=== PATIENT | female | born 1995 | race Caucasian/White ===

== ENCOUNTER 2018-08-10 20:51 | Emergency (ER) | payer OTHER ==
[2018-08-10 20:57] VITALS: BP 127/80; PULSE 100; TEMP 98.2; BMI 21.4
[2018-08-10] MEDS ORDERED: IBUPROFEN 100 MG/5 ML UNIT DOSE CUPS PO ONE (21:05)
--- NOTE | 2018-08-10 21:06 | PDOC ---
History of Present Illness - General History Source: Patient Exam Limitations: No Limitations - History of Present Illness Initial Comments: 08/10/18 21:25 The patient is a 22 year old female with no significant past medical history who presents to the ED with a sore throat since this morning. The patient notes she had a recent cold that self resolved. The patient notes these are similar symptoms to her previous Strep throat. The patient reports having nasal congestion, ear pain on both ears, and difficulty swallowing food. The patient took Tylenol with mild relief. The patient notes she saw the nurse at school without any thorough evaluation. The patient denies any sick contacts or travel. The patient denies having the flu shot. Denies fever, chills, chest pain, SOB, palpitation, dizziness, N, V, D, abdominal pain, bladder and bowel problems, leg swelling, no travel history. Allergies: Erythromycin base Past Medical History: None reported Social history: Attends [employer], No smoking. No alcohol. No illicit drugs. Surgical history: None reported ROS Constitutional: no fevers or chills. No sweats or weakness. HEENT: (+) nasal congestion.(+) ear pain. no headache or dizziness. No visual/ hearing disturbances. CVS: no cp no palpitations. Resp: no sob. No cough. Gastrointestinal: no abdominal pain, nausea or vomiting. MUSCULOSKELETAL:(+) mild myalgia. No joint pain and swelling. No neck or back pain. No neck stiffness. SKIN: no redness or skin changes, no discharge, no rash. No wounds. Hematologic: no easy bruising/bleeding. NEUROLOGIC: No headache, dizziness, LOC or altered mental status. No weakness, numbness or tingling. Allergic/Immunologic: no environmental allergies All other systems reviewed and negative, or as documented in HPI. PE: General: Well appearing, awake and alert, NAD. HEENT: NCAT, PERRL, EOMI, clear conjunctiva, anicteric, moist mucous membranes , clear oropharynx, no oral lesions.. (+) right tonsil inflammation, erythema, with scant exudates. No kissing tonsils. Normal phonation, uvula midline. T.M bilaterally clear, no erythema or tenderness to pinna manipulation. Neck: neck supple, FROM; no meningismus. Resp: CTAB, normal and even respirations, no respiratory distress CVS: RRR, no murmurs, 2+ peripheral pulses throughout, no peripheral edema Abdomen: soft, NTND, no peritoneal signs. Back: nontender, normal inspection and ROM MSK: no edema, LEE x4, ROM intact. No clubbing or cyanosis. normal bulk and tone. Neuro: alert Skin: warm and well perfused, cap refill <2 sec, normal color. No rash. Lymph: no lymphadenopathy <Wai Manning - Last Filed: 08/10/18 21:25> - General History Source: Patient Exam Limitations: No Limitations <Pema Daily - Last Filed: 08/10/18 21:28> - General Chief Complaint: Pain, Acute Stated Complaint: STREPT THROAT Time Seen by Provider: 08/10/18 20:52 Past History <Wai Manning - Last Filed: 08/10/18 21:25> - Past Medical History COPD: No Other medical history: DENIES - Suicide/Smoking/Psychosocial Hx Smoking History: Never smoked Have you smoked in the past 12 months: No Information on smoking cessation initiated: Yes Hx Alcohol Use: Yes Drug/Substance Use Hx: No <Pema Daily - Last Filed: 08/10/18 21:28> - Past Medical History Allergies/Adverse Reactions: Allergies Allergy/AdvReac Type Severity Reaction Status Date / Time erythromycin base Allergy Verified 08/10/18 20:53 Home Medications: Ambulatory Orders NK [No Known Home Medication] 08/10/18 *Physical Exam - Vital Signs Last Vital Signs Temp Pulse Resp BP Pulse Ox 98.2 F 100 H 16 127/80 99 08/10/18 20:54 08/10/18 20:54 08/10/18 20:54 08/10/18 20:54 08/10/18 20:54 <Wai Manning - Last Filed: 08/10/18 21:25> - Vital Signs Last Vital Signs Temp Pulse Resp BP Pulse Ox 98.2 F 100 H 16 127/80 99 08/10/18 20:54 08/10/18 20:54 08/10/18 20:54 08/10/18 20:54 08/10/18 20:54 <Pema Daily - Last Filed: 08/10/18 21:28> Moderate Sedation - Procedure Monitoring Vital Signs: Procedure Monitoring Vital Signs Temperature 98.2 F 08/10/18 20:54 Pulse Rate 100 H 08/10/18 20:54 Respiratory Rate 16 08/10/18 20:54 Blood Pressure 127/80 08/10/18 20:54 O2 Sat by Pulse Oximetry (%) 99 08/10/18 20:54 <Wai Manning - Last Filed: 08/10/18 21:25> - Procedure Monitoring Vital Signs: Procedure Monitoring Vital Signs Temperature 98.2 F 08/10/18 20:54 Pulse Rate 100 H 08/10/18 20:54 Respiratory Rate 16 08/10/18 20:54 Blood Pressure 127/80 08/10/18 20:54 O2 Sat by Pulse Oximetry (%) 99 08/10/18 20:54 <Pema Daily - Last Filed: 08/10/18 21:28> ED Treatment Course - Medications Given in the ED: ED Medications Discontinued Medications Generic Name Dose Route Start Last Admin Trade Name Hollie PRN Reason Stop Dose Admin Dexamethasone 10 mg 08/10/18 21:12 08/10/18 21:20 Decadron Liquid - PO 08/10/18 21:13 10 mg ONCE ONE Administration Ibuprofen 400 mg 08/10/18 21:05 08/10/18 21:13 Motrin Oral Suspension - PO 08/10/18 21:06 400 mg ONCE ONE Administration <Wai Manning - Last Filed: 08/10/18 21:25> Medical Decision Making - Medical Decision Making 08/10/18 21:27 I, Pema Daily MD, attest that this document has been prepared under my direction and personally reviewed by me in its entirety. I further attest, that it accurately reflects all work, treatment, procedures and medical decision -making performed by me. See HPI for details Vital signs reviewed, wnl. no fever, nontoxic appearing DDx. strep throat, pharyngitis, tonsillitis, doubt RPA or BEAD STRINGER on exam. no meningeal signs. no e/o dehydration. no flu like sx. ED course: strep test neg, f/u cultures given Ibuprofen and dexamethasone, liss PO intake, nontoxic. reassurance given, discharge instructions as below. Dispo: Pt informed of my clinical impression, treatment recommendations and disposition plan. All questions answered to patient's satisfaction and expressed understanding and comfort with this. Reasons for returning to the ED sooner discussed with the patient otherwise, follow up with primary care physician. At the time of discharge, the patient is alert, clinically improved, tolerating po and verbalizes understanding of instructions. Patient does not suffer from an acute life-threatening medical condition at this time she is safe for outpatient follow-up. <AbimbolaMarielPemashanae Hull - Last Filed: 08/10/18 21:28> *DC/Admit/Observation/Transfer - Attestations Scribe Attestion: 08/10/18 21:25 Documentation prepared by Wai Manning, acting as front office medical assistant for Pema Daily MD, MD <Wai Manning - Last Filed: 08/10/18 21:25> - Discharge Dispostion Decision to Admit order: No <Pema Daily - Last Filed: 08/10/18 21:28> Diagnosis at time of Disposition: Acute tonsillitis Qualifiers: Pharyngitis/tonsillitis etiology: other specified organisms Qualified Code(s): J03.80 - Acute tonsillitis due to other specified organisms Acute pharyngitis Qualifiers: Pharyngitis/tonsillitis etiology: other specified organisms Qualified Code(s): J02.8 - Acute pharyngitis due to other specified organisms - Discharge Dispostion Disposition: HOME Condition at time of disposition: Stable - Referrals Referrals: [facility] [place] [facility] [place] [Provider Group] [facility] [Provider Group] - Patient Instructions Printed Discharge Instructions: DI for Pharyngitis/Tonsillopharyngitis -- Adult Additional Instructions: Your strep test preliminarily as negative, follow-up on throat cultures. Saltwater gargles, warm limited and ivett tea to soothe the back of the throat. This is most likely a viral cause Stay well-hydrated, may take Motrin/Tylenol as needed for pain every 6 hours. Adequately, wear a mask when you cough. Supportive care encouraged and adequate rest. You were given ibuprofen and one-time dose of oral steroids for anti- inflammatory should and for discomfort. avoid contact sports in the meantime. See your primary doctor, return if worsening symptoms including respiratory distress, high fevers, inability to tolerate your secretions or oral intake, worsening pain, neck stiffness, neurologic changes or dehydration.
[2018-08-10] MEDS ORDERED: IBUPROFEN 100 MG/5 ML UNIT DOSE CUPS ONE (21:12)
[2018-08-10] MEDS ORDERED: DEXAMETHASONE LIQUID 0.5 MG/5 ML 240 ML BULK BOTTLE PO ONE (21:12)
[2018-08-10] MEDS ORDERED: DEXAMETHASONE SOD PHOSPHATE 10 MG/1 ML VIAL ONE (21:14)
== END 2018-08-10 21:30 | disposition home or self-care (01) ==
LOC: FER 20:51
DX: J02.8 Acute pharyngitis due to other specified organisms (principal); J03.80 Acute tonsillitis due to other specified organisms
CPT/HCPCS: 87070; 87880; 99281-25

== ENCOUNTER 2018-09-16 13:17 | Emergency (ER) | payer BC, OTHER ==
[2018-09-16 13:21] VITALS: BMI 22.1
--- NOTE | 2018-09-16 13:38 | PDOC ---
History of Present Illness - General History Source: Patient Exam Limitations: No Limitations - History of Present Illness Initial Comments: 09/16/18 14:01 The patient is a 22 year old female, with no significant past medical history, who presents to the emergency department with complaint of painful mouth sores. She states she developed chills, body aches, and sores inside her mouth on Thursday. She states she continued to have chills and sores for the remainder of the weekend which she states prompted a visit to urgent care on Thursday. She states she told urgent care about the sores and also that she was concerned about a possible infected wisdom tooth and the urgent care physician prescribed amoxicillin and acyclovir which she reportedly started Thursday. She states she developed nausea and vomiting shortly after taking the medication, but denies nausea or vomiting since. She states she has been unable to eat solid foods secondary to pain in her mouth. She states she has been drinking Ensure as tolerated. She reports having a canker sore on her mouth once or twice in the past, but denies ever having multiple painful lesions in her mouth at one given time. She states she has not been sexually active recently and is currently on her menstrual period. She denies a history of STIs. Secondarily, she states a teammate from her softball team had the flu recently which is what she initially thought she was developing when she had the chills and body aches on Thursday. She denies chest pain, shortness of breath, and dizziness. She denies fever, chills, nausea, vomit, diarrhea and constipation. She denies dysuria, frequency , urgency and hematuria. Allergies: erythromycin base Social history: Denies Tobacco or ETOH. <Soo Will - Last Filed: 09/16/18 14:01> <Ceasar Rousseau - Last Filed: 09/16/18 16:09> - General Chief Complaint: Pain, Acute Stated Complaint: MOUTH SORES Time Seen by Provider: 09/16/18 13:27 Past History <Soo Will - Last Filed: 09/16/18 14:01> - Past Medical History COPD: No - Suicide/Smoking/Psychosocial Hx Smoking History: Never smoked Have you smoked in the past 12 months: No Hx Alcohol Use: No Drug/Substance Use Hx: No <Ceasar Rousseau - Last Filed: 09/16/18 16:09> - Past Medical History Allergies/Adverse Reactions: Allergies Allergy/AdvReac Type Severity Reaction Status Date / Time erythromycin base Allergy Verified 09/16/18 13:18 Home Medications: Ambulatory Orders Mag Hydrox/Alh/Smc/Dpha/Lido [Magic Mouthwash *Sjr Formula* -] 5 ml MM Q6HPO #1 mouthwash 09/16/18 Review of Systems - Review of Systems Able to Perform ROS?: Yes Comments:: 09/16/18 14:02 ROS: A complete review of 10 out of 10 review of systems is taken and is negative apart from what is previously mentioned below and in the HPI. Constitutional: No recent illness; no fever ENT: (+) multiple painful mouth sores. Cardiovascular: No palpitations; no chest pain Pulmonary: No cough; no trouble breathing Gastrointestinal: No nausea; no vomiting; no diarrhea Genitourinary: No urinary problems; no hematuria Skin: No rash Lymph system: No swollen glands Musculoskeletal: No joint swelling Neurological: No weakness; No numbness; No Headache; no vertigo; no lightheadedness Psychiatric:No anxiety; no depression <Soo Will - Last Filed: 09/16/18 14:01> *Physical Exam - Vital Signs Last Vital Signs Temp Pulse Resp BP Pulse Ox 98.5 F 117 H 18 122/82 100 09/16/18 13:17 09/16/18 13:17 09/16/18 13:17 09/16/18 13:17 09/16/18 13:17 - Physical Exam Comments: 09/16/18 14:03 Vitals: Triage vital signs reviewed General Appearance: No acute distress, well nourished, well developed Head: Atraumatic Eyes: Pupils equal reactive round, extraocular movement intact Throat: (+) Bilateral cervical lymphadenopathy and multiple ulcers in mid healing stage in mouth. Posterior oropharynx without erythema, mucous membranes moist Neck: Supple; No nuchal rigidity Chest Wall: Nontender Cardiac: Regular rate and rhythm, no murmurs, no rubs, no gallops Lungs: Clear to auscultation bilateral, good air movement bilaterally Abdomen: Soft, nondistended, normal bowel sounds, nontender to palpation Extremities: Full range of motion to all extremities, no cyanosis, clubbing, or edema Skin: Warm and dry, no rashes or lesions, no rash, no petechiae Neuro: AOX3; Cranial Nerves 2-12 grossly intact, Strength intact to all extremities, Sensation intact to all extremities, gait normal Psych: Normal mood, normal affect <Soo Will - Last Filed: 09/16/18 14:01> - Vital Signs Last Vital Signs Temp Pulse Resp BP Pulse Ox 98.5 F 117 H 18 122/82 100 09/16/18 13:17 09/16/18 13:17 09/16/18 13:17 09/16/18 13:17 09/16/18 13:17 <Ceasar Rousseau - Last Filed: 09/16/18 16:09> ED Treatment Course - LABORATORY CBC & Chemistry Diagram: 09/16/18 14:02 09/16/18 14:02 <Ceasar Rousseau - Last Filed: 09/16/18 16:09> Medical Decision Making - Medical Decision Making 09/16/18 16:00 Resolving mouth sores History and examination consistent with viral illness While signs within normal limits after IV fluids and Tylenol We'll recommend patient continue the amoxicillin and acyclovir that she was started on Will treat with Magic mouthwash Tylenol and Motrin she'll follow-up with her primary care provider this week she'll return to the ED for any severe worsening symptoms or for any concerns. <Ceasar Rousseau - Last Filed: 09/16/18 16:09> *DC/Admit/Observation/Transfer - Attestations Scribe Attestion: 09/16/18 14:04 Documentation prepared by Soo Will, acting as medical file clerk for Ceasar Rousseau MD, <Soo Will - Last Filed: 09/16/18 14:01> - Discharge Dispostion Decision to Admit order: No <Ceasar Rousseau - Last Filed: 09/16/18 16:09> Diagnosis at time of Disposition: Oral aphthous ulcer - Discharge Dispostion Disposition: HOME Condition at time of disposition: Stable - Prescriptions Prescriptions: Mag Hydrox/Alh/Smc/Dpha/Lido [Magic Mouthwash *Sjr Formula* -] 5 ml MM Q6HPO #1 mouthwash - Referrals Referrals: [facility] [place] [facility] [place] [Provider Group] - Patient Instructions Printed Discharge Instructions: Aphthous Ulcers Additional Instructions: Use Magic mouthwash as prescribed. Alternate [id number] Tylenol Motrin as directed on package. Drink plenty of fluids. Return to the emergency department for any severe worsening symptoms otherwise follow-up with your primary care provider or our clinic within 2 days. - Post Discharge Activity Forms/Work/School Notes: Back to Work
[2018-09-16] MEDS ORDERED: SODIUM CHLORIDE 0.9% 1000 ML INFUS.BAG IV ONE (13:54)
[2018-09-16] MEDS ORDERED: KETOROLAC TROMETHAMINE 30 MG/1 ML VIAL IVPUSH ONE (13:54)
[2018-09-16] MEDS ORDERED: ACETAMINOPHEN 1000 MG/100 ML VIAL (NON FORMULARY) IVPB ONE (13:54)
[2018-09-16] MEDS ORDERED: MAG HYDROX/ALH/SMC/DPHA/LIDO 240 ML MOUTHWASH MM ONE (13:55)
[2018-09-16] MEDS ORDERED: ACETAMINOPHEN INJECTION 100 ML IVPB ONE (14:03)
[2018-09-16] MEDS ORDERED: KETOROLAC TROMETHAMINE 30 MG/1 ML VIAL ONE (14:03)
[2018-09-16 14:49] VITALS: BP 97/55; PULSE 80; TEMP 99.1
[2018-09-16 14:52] LABS: ALBUMIN 3.9 g/dl (3.4-5.0); ALK PHOS 47 U/L (45-117); ANION GAP 7 MMOL/L (8-16); BILIRUBIN,TOTAL 0.6 mg/dl (0.2-1); BLOOD UREA NITROGEN 14 mg/dl (7-18); CHLORIDE 100 mmol/L (98-107); CO2 30 mmol/L (21-32); CREATININE 0.6 mg/dl (0.55-1.3); GLUCOSE,RANDOM 83 mg/dl (74-106); POTASSIUM 3.8 mmol/L (3.5-5.1); SGOT/AST 21 U/L (15-37); SGPT/ALT 15 U/L (13-61); SODIUM 137 mmol/L (136-145); TOT PROT 7.8 g/dl (6.4-8.2)
[2018-09-16 14:59] LABS: BASO % 0.3 % (0-2.0)
[2018-09-16 15:01] LABS: EOS % 0.6 % (0-4.5); HEMATOCRIT 43.3 % (32.4-45.2); LYMPH % 32.8 % (8-40); MCHC 32.3 g/dl (32.0-36.0); MEAN CELL VOLUME 86.7 fl (80-96); MEAN PLT VOLUME 8.6 fl (7.5-11.1); MONO % 15.3 % (3.8-10.2); PLATELET COUNT 249 K/MM3 (134-434); RBC 4.99 M/mm3 (3.60-5.2); RDW 13.4 % (11.6-15.6); WHITE BLOOD COUNT 5.5 K/mm3 (4.0-10.8)
== END 2018-09-16 16:14 | disposition home or self-care (01) ==
LOC: FER 13:17
PROC: 3E033NZ Introduction of Analgesics, Hypnotics, Sedatives into Peripheral Vein, Percutaneous Approach (ICD-10-PCS; principal; 2018-09-16)
PROC: 3E0333Z Introduction of Anti-inflammatory into Peripheral Vein, Percutaneous Approach (ICD-10-PCS; 2018-09-16)
PROC: 3E0337Z Introduction of Electrolytic and Water Balance Substance into Peripheral Vein, Percutaneous Approach (ICD-10-PCS; 2018-09-16)
DX: K12.0 Recurrent oral aphthae (principal)
CPT/HCPCS: 36415; 80053; 85025; 86308; 99282-25; J0131; J7030